=== PATIENT | female | born 1950 | race Caucasian/White ===

== ENCOUNTER → 2024-11-18 | Outpatient (CLI) | payer OTHER, SELFPAY ==
[2024-11-18 12:09] LABS: Albumin, Serum 4.5 gm/dL (3.4-4.8); Anion Gap 8 (7-16); BUN/Creatinine Ratio 17 Ratio (12-20); Blood Urea Nitrogen 15 mg/dL (9-23); Calcium 9.8 mg/dL (8.3-10.6); Calcium (Corrected) 9.8 mg/dL (8.5-10.1); Carbon Dioxide 28.8 mMol/L (20.0-31.0); Chloride 102 mMol/L (98-107); Creatinine (Component) 0.9 mg/dL (0.6-1.3); Glucose 98 mg/dL (74-106); Osmolality,Calculated 278 (275-295); Phosphorous 4.4 mg/dL (2.4-5.1); Potassium 4.8 mMol/L (3.4-5.1); Sodium 139 mMol/L (136-145); eGFR > 60 See Note
== END | disposition home or self-care (01) ==
LOC: COPL 10:41
PROVIDERS: PCP Internal Medicine; Referring Provider Internal Medicine; Visit Provider Internal Medicine
DX: I10 Essential (primary) hypertension (principal)
CPT/HCPCS: 36415; 80069

== ENCOUNTER → 2024-11-27 | Outpatient (CLI) | payer OTHER, SELFPAY ==
--- NOTE | 2024-11-27 14:40 | XR_ITS ---
Examination: CT chest, without intravenous contrast. Sagittal and coronal 2-D reconstructions. Exam date and time: November 27, 2024 1432 hrs. Indications: Smoking history 60 years CTDI:vol (mGy) 7.08 DLP: (mGycm) 276 Technique: Multiple 3.0 mm axial sections of the chest to been obtained. Bone and lung density settings are obtained. Sagittal and coronal 2-D reconstructions have been obtained. Low dose protocols were performed. One or more of the following dose reduction techniques were used; automated exposure control, adjustment of the mA and/or KV according to patient size, use of iterative reconstruction technique. Findings: No thoracic aortic injury to dilatation. Pulmonary artery segments are not enlarged. Heavy calcification proximal left anterior descending coronary artery. No paratracheal tracheobronchial or bronchopulmonary adenopathy 2 mm soft pulmonary nodule posterior right lung image 182 No pneumonia or pulmonary edema No visualized liver or splenic lesion Contracted gallbladder No pancreatic mass Impression: 2 mm soft pulmonary nodule posterior right lung, with this study as baseline recommend 6 month follow-up CT chest without contrast
== END | disposition home or self-care (01) ==
PROVIDERS: PCP Internal Medicine; Referring Provider Internal Medicine; Visit Provider Internal Medicine
DX: Z12.2 Encounter for screening for malignant neoplasm of respiratory organs (principal); R91.1 Solitary pulmonary nodule
CPT/HCPCS: 71250

== ENCOUNTER 2024-12-07 12:40 | Emergency (ER) | payer OTHER, SELFPAY ==
[2024-12-07 13:00] VITALS: BP 181/111; BP 182/102; PULSE 84; RESP 24; TEMP 36.8; O2SAT 95; BMI 20.3
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
== END 2024-12-07 15:05 | disposition home or self-care (01) ==
LOC: SERX 15:04
PROVIDERS: Emergency Provider Emergency Medicine; PCP Internal Medicine
DX: S41.112A Laceration without foreign body of left upper arm, initial encounter (principal); S41.111A Laceration without foreign body of right upper arm, initial encounter; Y04.8XXA Assault by other bodily force, initial encounter; Y92.009 Unspecified place in unspecified non-institutional (private) residence as the place of occurrence of the external cause
CPT/HCPCS: 71111; 99283

== ENCOUNTER 2025-02-18 16:10 | Emergency (ER) | payer OTHER, SELFPAY ==
[2025-02-18 16:12] VITALS: BP 179/89; PULSE 83; PULSE 91; RESP 16; RESP 18; TEMP 36.8; O2SAT 95; O2SAT 97; BMI 20.3
[2025-02-18 16:40] VITALS: BP 144/80; PULSE 80; RESP 18; TEMP 36.9; O2SAT 94
--- NOTE | 2025-02-18 17:21 | EKG_ITS ---
[facility] Test Date: 2025-02-18 Pat Name: SHALOM GRULLON Department: Room: - Gender: Female [employer] Up Operator: : 1950 Requested By: Amy Blake Order Number: [id number] Reading MD: Amy Blake Measurements Intervals [place] Rate: 66 P: 58 TN: 150 QRS: 9 QRSD: 101 T: 37 QT: 427 QTc: 450 Interpretive Statements SINUS RHYTHM SEPTAL MYOCARDIAL INFARCTION , OF INDETERMINATE AGE [40+ ms Q WAVE IN V1/V2] Compared to ECG 01/05/2021 17:03:00 Myocardial infarct finding now present Intraventricular conduction delay no longer present /store/S0/[id number]/[id number].pdf
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
--- NOTE | 2025-02-18 17:22 | EDNOTE_ITS ---
ED Fall Injury RME/HPI General Chief Complaint: Fall Stated Complaint: FALL Time Seen by Provider: 02/18/25 17:30 Arrival date/time: 02/18/25 16:10 RME / HPI RME / HPI Narrative: 75-year-old female presents to the ED with complaint of left-sided forehead contusion and left arm multiple skin avulsions secondary to a ground-level fall. Patient states she was at [facility] and tripped on a curb, falling to the ground. There was no loss of consciousness. She denies any visual or hearing changes, neck pain, back pain, numbness, tingling, weakness to her extremities. She denies any nausea or vomiting. She denies any hip, pelvis, or lower extremity pain or decreased range of motion. Related Data Home Medications ?Medication ?Instructions ?Recorded ?Confirmed atenolol 25 mg tablet (Tenormin) 50 mg PO QAM #0 tabs 08/31/17 12/27/20 losartan 50 mg tablet (Cozaar) 50 mg PO QDAY 04/26/19 12/27/20 aspirin 81 mg tablet 81 mg PO QDAY 12/27/2012/27 chlorthalidone 25 mg tablet 12.5 mg PO QDAY 12/27/20 0 12/27/20 estradiol 0.5 mg tablet 0.5 mg PO QDAY 12/27/2012/16 Previous Rx's ?Medication ?Instructions ?Recorded albuterol sulfate 90 mcg/actuation 2 puff inhalation Q 4HR PRN 04/28/19 aerosol inhaler shortness of breath or wheez ing #6.7 grams montelukast 10 mg tablet 10 mg PO HS #30 tabs 9 timolol 0.5 % eye drops 1 drp ophthalmic (eye) BID # 15 mL 07/05/20 travoprost 0.004 % eye drops 1 drp ophthalmic (eye) QP M #5 mL 07/05/20 (Travatan Z) Allergies Allergy/AdvReac Type Severity Reaction Status Date / Time ceftriaxone Allergy Intermediate Rash Verified 02/18/25 16:15 codeine Allergy Intermediate Rash Verified 02/18/25 16:15 Penicillins Allergy Intermediate Rash Verified 02/18/25 16:15 Past Medical History Past Medical History NEUROLOGIC: Negative Neurological Disorders or Seizures CARDIAC: Positive Cardiac Disorders and Hypertension; Negative Congestive Heart Failure RESPIRATORY: Positive Chronic Obstructive Pulmonary Disease (COPD) and Asthma GASTROINTESTINAL: Negative Gastrointestinal Disorders GENITOURINARY: Negative Genitourinary Disorders or Renal Disease MUSCULOSKELETAL: Positive Musculoskeletal Disorders, Arthritis and Carpal Tunnel Syndrome ENT: Positive Glaucoma ENDOCRINE: Negative Endocrine Disorders, Diabetes Mellitus Type 1 or Diabetes Mellitus Type 2 HEMATOLOGIC: Negative Blood Disorders or Anemia OTHER HISTORY: Negative Autoimmune Disease, Blood Transfusions, Blood Transfusion Reaction or Anesthesia Reactions Surgical History SURGICAL: Positive Tonsillectomy, Abdominal Surgery and Hysterectomy Social History SMOKING STATUS: Heavy (> 1 pack/day) SUBSTANCE USE: unknown ED Exam Narrative Physical exam: Alert and oriented 75-year-old female, no acute distress. Current vital signs blood pressure 144/80, pulse 80, respirations 18 and nonlabored, temperature 98.4, O2 sat 94% on room air. Lungs are clear, regular rate and rhythm. Left eyebrow area contusion with skin avulsion/abrasion., No tenderness to the C-spine, T-spine or L-spine. No paraspinal tenderness. No tenderness to the clavicles, shoulders, upper arms, elbows, forearms, wrists or hands. No tenderness to the chest wall. Abdomen is soft and nontender. Pelvis and hips are without tenderness, no tenderness to the bilateral proximal legs, knees, tib-fib, ankles or feet. Cranial nerves II through XII grossly intact. Equal medical charge entry specialist strength, equal pedal push and pull. Normal range of motion to her upper extremities and lower extremities without pain. CMS intact to all 4 extremities. Skin tears noted to the left proximal humerus/shoulder area, left elbow, left wrist, and left small finger. Course Orders Category Date Time Status EKG (ED ONLY) *Do not use* NOW Care 02/18/25 17:[address] head/brain wo con Stat Exams 02/18/25 17:21 Completed EKG (ED Only) Stat Exams 02/18/25 17:21 Draft Vital Signs Vital signs: Vital Signs Temperature 98.2 F 02/18/25 16:12 Pulse Rate 83 02/18/25 16:12 Respiratory Rate 18 02/18/25 16:12 Blood Pressure 179/89 H 02/18/25 16:12 Pulse Oximetry (%) 95 02/18/25 16:12 Oxygen Delivery Method Room Air 02/18/25 16:12 Fall MDM Narrative MDM Narrative:: CT head: EKG: Procedures, wounds were cleansed, skin avulsions: Avulsed skin was replaced and tacked down with Steri-Strips to the shoulder, left wrist and left small finger. Left elbow skin replaced and covered with Tegaderm dressing. Discharge Plan Plan Patient Disposition: HOME (Self Care) Discharge Disposition comment: Stable and Improved Prescriptions/Referrals Prescriptions/Med Rec: No Action atenolol [Tenormin] 25 MG tablet 50 mg PO QAM Qty: 0 losartan [Cozaar] 50 mg Tablet 50 mg PO QDAY montelukast 10 mg Tablet 10 mg PO HS Qty: 30 0RF albuterol sulfate 90 mcg/actuation HFA aerosol inhaler 2 puff INH Q4HR PRN (Reason: shortness of breath or wheezing) Qty: 6.7 0RF travoprost [Travatan Z] 0.004 % drops 1 drp ophthalmic (eye) QPM Qty: 5 0RF timolol 0.5 % drops 1 drp ophthalmic (eye) BID Qty: 15 0RF chlorthalidone 25 mg Tablet 12.5 mg PO QDAY estradiol 0.5 mg Tablet 0.5 mg PO QDAY aspirin 81 mg Tablet 81 mg PO QDAY Referrals: Brandon Smith MD [Primary Care Provider] - In 1 week Problem List Clinical Impression: Concussion without loss of consciousness, Fall (on)(from) sidewalk curb, initial encounter, Avulsion of skin Patient/Caregiver Discharge Instructions Education Materials: ED Fall with Uncertain Cause, ED Head Injury (Adult), ED Skin Avulsion Print Language: Romansh Stand Alone Forms: Brisa Award Info., Patient Portal Info Letter PA/SANITARY INSPECTOR Supervising Physician PA/SANITARY INSPECTOR Supervising Physician: Dr. Decker
[2025-02-18 18:34] VITALS: BP 176/91; PULSE 79; RESP 18; TEMP 36.8; O2SAT 96
[2025-02-18 20:09] VITALS: RESP 16
== END 2025-02-18 20:09 | disposition home or self-care (01) ==
PROVIDERS: Emergency Provider Emergency Medicine; PCP Internal Medicine
DX: S06.0X0A Concussion without loss of consciousness, initial encounter (principal); W01.0XXA Fall on same level from slipping, tripping and stumbling without subsequent striking against object, initial encounter; S00.12XA Contusion of left eyelid and periocular area, initial encounter; S61.502A Unspecified open wound of left wrist, initial encounter
CPT/HCPCS: 70450; 93005; 99284